=== PATIENT | female | born 1975 | race Caucasian/White ===

== ENCOUNTER → 2016-05-02 | Outpatient (CLI) | payer BC ==
[~2016-05-02] MED LIST: ASMANEX TW0.22 MG/AC INH; CLARITIN10 M1 PO; PROAIR RESPICL90 MCG INH; SINGULAIR PO
== END ==
LOC: RAD 07:00
DX: R22.42 Localized swelling, mass and lump, left lower limb (principal); R93.8 Abnormal findings on diagnostic imaging of other specified body structures

== ENCOUNTER → 2016-06-09 | Outpatient (CLI) | payer BC | LOC: LAB 14:33 | DX: K90.9 Intestinal malabsorption, unspecified (principal) ==

== ENCOUNTER → 2016-07-06 | Outpatient (CLI) | payer BC ==
[2015-04-01 10:28] VITALS: BP 151/100
== END ==
LOC: RAD 07:34
DX: R29.898 Other symptoms and signs involving the musculoskeletal system (principal); R22.42 Localized swelling, mass and lump, left lower limb
CPT/HCPCS: A9579

== ENCOUNTER → 2016-07-18 | Outpatient (CLI) | payer BC ==
[2015-04-01 10:28] VITALS: BP 151/100
== END ==
LOC: RAD 15:49
DX: R22.32 Localized swelling, mass and lump, left upper limb (principal)

== ENCOUNTER → 2016-12-02 | Outpatient (CLI) | payer BC ==
[2015-04-01 10:28] VITALS: BP 151/100
== END ==
LOC: LAB 13:39
DX: K50.90 Crohn's disease, unspecified, without complications (principal)

== ENCOUNTER → 2017-03-23 | Outpatient (CLI) | payer BC ==
[2015-04-01 10:28] VITALS: BP 151/100
== END ==
LOC: MAMMO 13:15
DX: N60.11 Diffuse cystic mastopathy of right breast (principal)

== ENCOUNTER → 2017-05-01 | Outpatient (CLI) | payer BC ==
[2015-04-01 10:28] VITALS: BP 151/100
[2017-05-01 08:36] LABS: EOS # 0.2 (0.04-0.40); EOS % 2.8 % (1.0-5.0); HEMATOCRIT 43.5 % (37.0-47.0); HEMOGLOBIN 14.1 g/dL (12.5-16.0); LYMPH# 1.7 (1.50-4.00); MEAN CELL VOLUME 83 fl (78-100); MEAN CORPUSCULAR HEMOGLOBIN 27 pg (27-31); MEAN CORPUSCULAR HGB CONC 32 g/dL (33-37); MEAN PLATELET VOLUME 9.5 fl (7.4-10.4); MONO # 0.6 (0.20-0.80); NEU # 4.1 (1.40-6.50); PLATELET COUNT 335 K/mm3 (130-400); RED BLOOD COUNT 5.25 M/mm3 (4.10-5.30); RED CELL DISTRIBUTION WIDTH 14.3 % (11.5-14.5); WHITE BLOOD COUNT 6.7 K/mm3 (4.8-10.8)
[2017-05-01 09:16] LABS: ALBUMIN 4.4 g/dL (3.5-5.0); BUN/CREATININE RATIO 21.5 (6.0-26.0); CALCIUM 9.2 mg/dL (8.4-10.2); POTASSIUM 4.6 mmol/L (3.6-5.0); TOTAL BILIRUBIN 0.4 mg/dL (0.2-1.3); TOTAL PROTEIN 7.6 g/dL (6.3-8.2)
[2017-05-01 09:52] LABS: ERYTHROCYTE SEDIMENTATION RATE 3 mm/hr (0-20)
== END ==
LOC: RAD 07:59
PROVIDERS: Internal Medicine
DX: J45.20 Mild intermittent asthma, uncomplicated (principal); I10 Essential (primary) hypertension; R05 Cough

== ENCOUNTER → 2018-02-01 | Outpatient (CLI) | payer BC ==
[2015-04-01 10:28] VITALS: BP 151/100
[2018-02-01 08:45] LABS: EOS # 0.2 (0.04-0.40); EOS % 2.3 % (1.0-5.0); HEMATOCRIT 43.1 % (37.0-47.0); HEMOGLOBIN 14.4 g/dL (12.5-16.0); LYMPH# 1.8 (1.50-4.00); MEAN CELL VOLUME 84 fl (78-100); MEAN CORPUSCULAR HEMOGLOBIN 28 pg (27-31); MEAN CORPUSCULAR HGB CONC 33 g/dL (33-37); MEAN PLATELET VOLUME 9.6 fl (7.4-10.4); MONO # 0.6 (0.20-0.80); NEU # 5.8 (1.40-6.50); PLATELET COUNT 291 K/mm3 (130-400); RED BLOOD COUNT 5.12 M/mm3 (4.10-5.30); RED CELL DISTRIBUTION WIDTH 13.9 % (11.5-14.5); WHITE BLOOD COUNT 8.5 K/mm3 (4.8-10.8)
[2018-02-01 09:01] LABS: ALBUMIN 4.4 g/dL (3.5-5.0); POTASSIUM 4.5 mmol/L (3.6-5.0); TOTAL BILIRUBIN 0.4 mg/dL (0.2-1.3); TOTAL PROTEIN 7.1 g/dL (6.3-8.2)
[2018-02-01 09:48] LABS: ERYTHROCYTE SEDIMENTATION RATE 2 mm/hr (0-20)
[2018-02-01 10:03] LABS: URINE APPEARANCE HAZY; URINE BILIRUBIN NEGATIVE (NEGATIVE); URINE BLOOD TRACE (NEGATIVE); URINE COLOR YELLOW; URINE GLUCOSE NEGATIVE (NEGATIVE); URINE KETONE NEGATIVE (NEGATIVE); URINE LEUKOCYTE ESTERASE NEGATIVE (NEGATIVE); URINE MUCUS PRESENT (NOT PRESENT); URINE NITRATE NEGATIVE (NEGATIVE); URINE PROTEIN(semi-quant) TRACE mg/dL (NEGATIVE); URINE UROBILINOGEN NORMAL (NORMAL)
== END ==
LOC: LAB 08:30
PROVIDERS: Internal Medicine
DX: Z00.00 Encounter for general adult medical examination without abnormal findings (principal)

== ENCOUNTER → 2018-02-12 | Outpatient (CLI) | payer BC ==
[2015-04-01 10:28] VITALS: BP 151/100
== END ==
LOC: VAS 15:46
DX: I10 Essential (primary) hypertension (principal)

== ENCOUNTER → 2018-07-05 | Outpatient (CLI) | payer BC ==
[2015-04-01 10:28] VITALS: BP 151/100
== END ==
LOC: MAMMO 09:15
DX: Z12.31 Encounter for screening mammogram for malignant neoplasm of breast (principal)

== ENCOUNTER 2018-07-26 08:15 | Outpatient (RCR) | payer BC ==
[2018-07-24 20:04] VITALS: BP 151/91
[~2018-07-26] VITALS: Ht 165.1 cm; Wt 81.8 kg
[~2018-07-26 08:15] MED LIST changes: +COREG 6.256.25 MG/TA PO
[2018-07-26 08:32] VITALS: BP 123/80
== END 2018-07-26 18:00 | disposition home or self-care (01) ==
LOC: AMSURD 08:15
DX: T14.8XXA Other injury of unspecified body region, initial encounter (principal)

== ENCOUNTER → 2019-05-10 | Outpatient (CLI) | payer BC ==
[2019-05-10 14:51] LABS: EOS # 0.1 (0.04-0.40); EOS % 1.8 % (1.0-5.0); HEMATOCRIT 42.9 % (37.0-47.0); HEMOGLOBIN 14.4 g/dL (12.5-16.0); LYMPH# 2.2 (1.50-4.00); MEAN CELL VOLUME 84 fl (78-100); MEAN CORPUSCULAR HEMOGLOBIN 28 pg (27-31); MEAN CORPUSCULAR HGB CONC 34 g/dL (33-37); MEAN PLATELET VOLUME 9.8 fl (7.4-10.4); MONO # 0.5 (0.20-0.80); NEU # 3.8 (1.40-6.50); PLATELET COUNT 306 K/mm3 (130-400); RED BLOOD COUNT 5.13 M/mm3 (4.10-5.30); RED CELL DISTRIBUTION WIDTH 13.5 % (11.5-14.5); WHITE BLOOD COUNT 6.6 K/mm3 (4.8-10.8)
[2019-05-10 14:54] LABS: POTASSIUM 3.9 mmol/L (3.5-5.1); SODIUM 140 mmol/L (136-145)
[2019-05-10 14:55] LABS: CALCIUM 8.8 mg/dL (8.3-10.5)
[2019-05-10 14:56] LABS: GLUCOSE 95 mg/dL (65-105)
[2019-05-10 14:57] LABS: CARBON DIOXIDE 25 mmol/L (22-29)
[2019-05-10 15:21] LABS: TROPONIN-I < 0.03 ng/mL (<0.030)
== END ==
LOC: AMSURD 14:16
PROVIDERS: Physician Assistant
DX: I10 Essential (primary) hypertension (principal); R20.0 Anesthesia of skin

== ENCOUNTER → 2019-07-31 | Outpatient (CLI) | payer BC ==
[2019-07-31 08:41] LABS: BASO # 0.1 (0.02-0.10); EOS # 0.1 (0.04-0.40); EOS % 0.8 % (1.0-5.0); HEMATOCRIT 44.3 % (37.0-47.0); HEMOGLOBIN 14.8 g/dL (12.5-16.0); LYMPH# 2.2 (1.50-4.00); MEAN CELL VOLUME 83 fl (78-100); MEAN CORPUSCULAR HEMOGLOBIN 28 pg (27-31); MEAN CORPUSCULAR HGB CONC 33 g/dL (33-37); MEAN PLATELET VOLUME 9.5 fl (7.4-10.4); MONO # 0.7 (0.20-0.80); NEU # 6.3 (1.40-6.50); PLATELET COUNT 350 K/mm3 (130-400); RED BLOOD COUNT 5.36 M/mm3 (4.10-5.30); RED CELL DISTRIBUTION WIDTH 13.6 % (11.5-14.5); WHITE BLOOD COUNT 9.3 K/mm3 (4.8-10.8)
[2019-07-31 08:52] LABS: ALBUMIN 4.4 g/dL (3.5-5.0); POTASSIUM 4.1 mmol/L (3.5-5.1)
[2019-07-31 08:53] LABS: CALCIUM 8.9 mg/dL (8.3-10.5)
[2019-07-31 08:56] LABS: TOTAL BILIRUBIN 0.4 mg/dL (0.2-1.2)
[2019-07-31 09:18] LABS: URINE APPEARANCE HAZY; URINE BILIRUBIN NEGATIVE (NEGATIVE); URINE BLOOD 50 ery/uL (NEGATIVE); URINE COLOR YELLOW; URINE GLUCOSE NEGATIVE (NEGATIVE); URINE KETONE NEGATIVE (NEGATIVE); URINE LEUKOCYTE ESTERASE NEGATIVE (NEGATIVE); URINE MUCUS PRESENT (NOT PRESENT); URINE NITRATE NEGATIVE (NEGATIVE); URINE PROTEIN(semi-quant) TRACE mg/dL (NEGATIVE); URINE UROBILINOGEN NORMAL (NORMAL); URINE WBC 0-1 /hpf (0-3)
[2019-07-31 09:39] LABS: ERYTHROCYTE SEDIMENTATION RATE 1 mm/hr (0-20)
== END ==
LOC: LAB 08:24
PROVIDERS: Internal Medicine
DX: Z00.00 Encounter for general adult medical examination without abnormal findings (principal)

== ENCOUNTER → 2019-12-18 | Outpatient (CLI) | payer BC | LOC: MAMMO 13:00 | DX: Z12.31 Encounter for screening mammogram for malignant neoplasm of breast (principal); N64.89 Other specified disorders of breast ==

== ENCOUNTER → 2019-12-26 | Outpatient (CLI) | payer BC | LOC: RAD 14:16 | DX: N60.01 Solitary cyst of right breast (principal) ==

== ENCOUNTER → 2020-01-02 | Outpatient (CLI) | payer BC | LOC: RAD 12:00 | DX: N63.11 Unspecified lump in the right breast, upper outer quadrant (principal) | CPT/HCPCS: 15989; 15990; A4648 ==

== ENCOUNTER → 2020-01-11 | Outpatient (CLI) | payer BC | LOC: LAB 07:32 | DX: U07.1 COVID-19 (principal); H92.09 Otalgia, unspecified ear ==

== ENCOUNTER → 2020-09-17 | Outpatient (CLI) | payer BC | LOC: MAMMO 13:32 | DX: R92.8 Other abnormal and inconclusive findings on diagnostic imaging of breast (principal); Z98.82 Breast implant status; Z98.890 Other specified postprocedural states ==

== ENCOUNTER → 2021-02-23 | Outpatient (CLI) | payer BC | LOC: RAD 08:00 | DX: R06.00 Dyspnea, unspecified (principal); R53.1 Weakness ==

== ENCOUNTER → 2021-04-02 | Outpatient (CLI) | payer BC ==
[2021-04-02 08:41] LABS: ALBUMIN 4.4 g/dL (3.5-5.0); POTASSIUM 4.5 mmol/L (3.5-5.1)
[2021-04-02 08:42] LABS: CALCIUM 9.3 mg/dL (8.3-10.5)
[2021-04-02 08:44] LABS: TOTAL PROTEIN 7.3 g/dL (6.4-8.3)
[2021-04-02 08:46] LABS: TOTAL BILIRUBIN 0.5 mg/dL (0.2-1.2)
[2021-04-02 08:51] LABS: MAGNESIUM 1.97 mg/dL (1.60-2.60)
== END ==
LOC: LAB 08:12
PROVIDERS: Internal Medicine Adult Congenital Heart Disease
DX: I10 Essential (primary) hypertension (principal); R06.00 Dyspnea, unspecified; R53.1 Weakness

== ENCOUNTER → 2022-01-05 | Outpatient (CLI) | payer BC | LOC: MAMMO 13:45 | DX: Z12.31 Encounter for screening mammogram for malignant neoplasm of breast (principal) ==

== ENCOUNTER → 2022-06-14 | Outpatient (CLI) | payer BC | LOC: RAD 10:00 | DX: R10.31 Right lower quadrant pain (principal) | CPT/HCPCS: Q9967 ==

== ENCOUNTER → 2023-03-16 | Outpatient (CLI) | payer BC | LOC: MAMMO 15:17 | DX: Z12.31 Encounter for screening mammogram for malignant neoplasm of breast (principal) ==

== ENCOUNTER → 2024-04-11 | Outpatient (CLI) | payer BC | LOC: RAD 15:38 | DX: M79.672 Pain in left foot (principal) ==